=== PATIENT | female | born 1970 | race Caucasian/White ===

== ENCOUNTER 2021-09-02 07:18 | Day surgery (SDC) | payer OTHER ==
[~2021-09-02] VITALS: Ht 154.9 cm; Wt 50.0 kg
[2021-09-02] VITALS (137 sets, daily range): BP systolic 80–164; BP diastolic 47–116
[2021-09-02 07:44] LABS: HEMATOCRIT 39.1 % (37.0-47.0); HEMOGLOBIN 12.8 g/dl (12.0-16.0); IMMATURE GRANULOCYTES 0.8 % (0.0-5.0); MEAN CELL VOLUME 94.2 fL CALC (80.0-100.0); MEAN CORPUSCULAR HGB 30.8 pG CALC (26.0-32.0); MEAN CORPUSCULAR HGB CONC 32.7 g/dL CAL (32.0-36.0); NEUT# 5.53 thou/uL (2.00-7.15); RED BLOOD COUNT 4.15 mill/uL (4.20-5.60)
[2021-09-02 07:54] LABS: ALBUMIN 3.9 g/dL (3.2-5.0); ALKALINE PHOSPHATASE 42 u/l (38-126); ANION GAP 10 (6-22 (CALC)); BILIRUBIN, TOTAL 0.3 mg/dL (0.0-1.4); BUN 11 mg/dL (7-17); BUN/CREATININE RATIO 16 (12-20 (CALC)); CARBON DIOXIDE 25 mmol/l (22-30); CHLORIDE 103 mmol/l (95-108); CREATININE 0.7 mg/dL (0.5-1.0); GFR FOR AFR.AMER. > 60 ML/MIN (>=60 (CALC)); GFR OTHER RACES > 60 ML/MIN (>=60 (CALC)); POTASSIUM 4.2 mmol/l (3.5-5.1); SGOT/AST 19 u/l (14-36); SODIUM 135 mmol/l (137-146); TOTAL PROTEIN 6.5 g/dL (6.3-8.2)
[2021-09-02] MEDS ORDERED: NORMODYNE/TRAN100 MG PO (08:32)
[2021-09-02] MEDS ORDERED: ESTRADIOL1 MG PO (08:34)
[2021-09-02] MEDS ORDERED: ARMOUR THYROID60 MG PO (08:35)
[2021-09-02] MEDS ORDERED: PROGESTERONE100 MG PO (08:36)
[2021-09-02] MEDS ORDERED: NALTREXONE50 MG PO (13:41)
[2021-09-02] MEDS ORDERED: CLONIDINE0.1 MG PO (13:42)
[2021-09-02] MEDS ORDERED: KLONOPIN2 MG PO (13:43)
[2021-09-03 03:32] VITALS: BP 143/95
[2021-09-03 03:34] VITALS: BP 139/92
[2021-09-03 05:55] LABS: HEMATOCRIT 38.8 % (37.0-47.0); HEMOGLOBIN 12.8 g/dl (12.0-16.0); IMMATURE GRANULOCYTES 0.3 % (0.0-5.0); MEAN CELL VOLUME 94.2 fL CALC (80.0-100.0); MEAN CORPUSCULAR HGB 31.1 pG CALC (26.0-32.0); NEUT# 6.24 thou/uL (2.00-7.15); RED BLOOD COUNT 4.12 mill/uL (4.20-5.60); RED CELL DISTRI WIDTH 13.4 % (11.5-15.5)
[2021-09-03 06:22] LABS: ALBUMIN 3.4 g/dL (3.2-5.0); ALKALINE PHOSPHATASE 39 u/l (38-126); ANION GAP 10 (6-22 (CALC)); BUN 12 mg/dL (7-17); BUN/CREATININE RATIO 17 (12-20 (CALC)); CARBON DIOXIDE 22 mmol/l (22-30); CHLORIDE 109 mmol/l (95-108); CREATININE 0.7 mg/dL (0.5-1.0); GFR FOR AFR.AMER. > 60 ML/MIN (>=60 (CALC)); GFR OTHER RACES > 60 ML/MIN (>=60 (CALC)); MAGNESIUM 2.3 mg/dL (1.6-2.3); POTASSIUM 4.2 mmol/l (3.5-5.1); SGOT/AST 25 u/l (14-36); SODIUM 136 mmol/l (137-146); TOTAL PROTEIN 5.8 g/dL (6.3-8.2)
[2021-09-03 06:25] LABS: BILIRUBIN, TOTAL 0.5 mg/dL (0.0-1.4)
[2021-09-03 07:36] VITALS: BP 148/90
[2021-09-03 10:59] VITALS: BP 146/92
[2021-09-03 19:08] VITALS: BP 125/79
[2021-09-04 04:19] VITALS: BP 173/107
[2021-09-04 04:36] VITALS: BP 155/95
[2021-09-04 06:01] VITALS: BP 146/95
[2021-09-04 06:47] VITALS: BP 143/94
== END 2021-09-04 10:07 | disposition home or self-care (01) | DRG 897 ==
LOC: EDSEX → ANR 07:18 → MS2 07:18 → ANR 07:41
PROVIDERS: ATTEND Anesthesiology
DX: F11.20 Opioid dependence, uncomplicated (principal)
CPT/HCPCS: J0131; J2354